=== PATIENT | male | born 1940 ===

== ENCOUNTER 2024-01-28 05:09 | Emergency (ER) | payer MEDICARE ==
[2024-01-28] MEDS ORDERED: LORazepam 2 MG/ML INJ ONE ×2 (05:27→05:30)
[2024-01-28] MEDS ORDERED: HYDROmorphone 0.5 MG/0.5 ML SYRINGE ONE ×2 (05:27→05:30)
[2024-01-28] MEDS ORDERED: SODIUM CHLORIDE 0.9% 1,000 ML BAG ONE (05:29)
[2024-01-28] MEDS ORDERED: ONDANSETRON 4 MG/2 ML VIAL ONE ×2 (05:30→05:31)
[2024-01-28] MEDS ORDERED: PROPARACAINE 0.5% OPHTH DROPS 15 ML BTL ONE ×2 (05:30→05:36)
--- NOTE | 2024-02-17 15:37 | OP ---
OPERATIVE REPORT DATE OF SERVICE : 01/28/2024 PROCEDURE PERFORMED: Paracentesis of the left eye. PREPROCEDURE DIAGNOSIS: Angle-closure glaucoma. POSTPROCEDURE DIAGNOSIS: Angle-closure glaucoma. ANESTHESIA: Topical. ESTIMATED BLOOD LOSS: None. SPECIMEN TAKEN: None. NARRATIVE: After obtaining the appropriate consent, the patient's eye was numbed with two drops of proparacaine 5 minutes apart. The eye was washed with 5% Betadine, which was allowed to stay in the eye for approximately 3 minutes. The eyelids were then held open and out of the way using a [place] eyelid speculum. The patient was brought to the slit lamp and at the 5 o'clock position, an MVR blade was used to create a paracentesis port. Posterior pressure against the open eye was used to enlarge the paracentesis to allow drainage of some aqueous from the shallowed anterior chamber of the patient's eye. At the end of the procedure, the patient received 2 drops of 0.5% timolol, followed by 2 drops of 2% pilocarpine. Each of the medications were delivered approximately 5 minutes apart from one another. Initial pressure on the patient's eye at the time of admission to the emergency room was 91. Following the paracentesis procedure, the pressure was down to 52 and subjectively, the patient appreciated some improvement of the vision that he had on initial presentation. MMODL / IJN: [id number] /
== END 2024-01-28 17:30 | disposition home or self-care (01) ==
LOC: EC 05:09
DX: H40.20X0 Unspecified primary angle-closure glaucoma, stage unspecified (principal)
CPT/HCPCS: 96374; 96375; 99283